=== PATIENT | male | born 1980 | race African-American/Black ===

== ENCOUNTER 2022-03-03 10:39 | Emergency (ER) | payer OTHER, SELFPAY ==
[2022-03-03] MEDS ORDERED: Ketorolac Tromethamine 30 MG/ML VIAL ONE (11:11)
[2022-03-03] MEDS ORDERED: Orphenadrine Citrate 60 MG/2 ML VIAL ONE (11:11)
== END 2022-03-03 11:42 | disposition home or self-care (01) ==
LOC: MADERS 10:39
DX: M54.50 Low back pain, unspecified (principal); J45.909 Unspecified asthma, uncomplicated; F17.210 Nicotine dependence, cigarettes, uncomplicated; X50.0XXA Overexertion from strenuous movement or load, initial encounter; Y92.69 Other specified industrial and construction area as the place of occurrence of the external cause; Z79.899 Other long term (current) drug therapy
CPT/HCPCS: 96372; 99283; J1885; J2360

== ENCOUNTER 2022-05-15 09:36 | Emergency (ER) | payer OTHER, SELFPAY ==
[2022-05-15 10:04] LABS: Bilirubin Negative (Negative); Blood, Urine Negative (Negative); Glucose, Urine (Dipstick) Negative (Negative); Ketone, Urine Negative (Negative); Leukocyte Negative (Negative); Nitrite Negative (Negative); Protein, Urine (Dipstick) Trace mg/dL (Neg-Trace); pH, Urine 5.5 (5.0-9.0)
[2022-05-15 10:13] LABS: Clarity Hazy (Clear); Specific Gravity, Urine 1.035 (1.002-1.036)
[2022-05-15] MEDS ORDERED: EPINEPHrine 1 MG/ML VIAL ONE ×2 (10:17→10:19)
[2022-05-15] MEDS ORDERED: EPINEPHrine 1 MG/10 ML Abboject SYRINGE ONE (10:17)
[2022-05-15 10:19] LABS: #Basophils 0.1 thou/uL (0.0-0.2); #Eosinphils 0.2 thou/uL (0.0-0.7); #Lymphocytes 1.1 thou/uL (1.20-3.40); #Monocytes 0.5 thou/uL (0.11-0.59); #Neutrophils 2.5 thou/uL (1.40-6.50); %Basophils 1.9 % (0.0-1.0); %Eosinophils 4.6 % (0.0-10.0); %Lymphocytes 24.7 % (21.0-51.0); %Monocytes 11.8 % (0.0-10.0); Hemoglobin 15.3 g/dL (14.0-18.0); Mean Corpuscular HGB CONC 32.3 g/dL (32.0-36.0); Mean Corpuscular Hemoglobin 32.3 pg (27.0-31.0); Mean Corpuscular Volume 99.8 fL (78.0-98.0); Mean Platelet Volume 10.1 fL (7.4-10.4); Platelet Count 236 thou/uL (130-400); RBC Distribution Width 12.3 % (11.5-14.5); Red Blood Cell (RBC) Count 4.75 mill/uL (4.70-6.10); White Blood Cell (WBC) Count 4.5 thou/uL (4.8-10.8)
[2022-05-15] MEDS ORDERED: Lidocaine 1% (PF) 30 ML VIAL ONE (10:24)
[2022-05-15 10:31] LABS: Anion Gap 13 mmol/L (10-20); BUN (Urea Nitrogen) 8 mg/dL (8.9-20.6); Calc. Creatinine Clearance 0 mL/min (70-130); Calcium 9.8 mg/dL (7.8-10.44); Carbon Dioxide 25 mmol/L (22-29); Chloride 105 mmol/L (98-107); Estimated GFR 74; Glucose 98 mg/dL (70-105); Potassium 4.7 mmol/L (3.5-5.1); Sodium 138 mmol/L (136-145)
== END 2022-05-15 10:39 | disposition home or self-care (01) ==
LOC: MADERS 09:36
DX: N48.30 Priapism, unspecified (principal); J45.909 Unspecified asthma, uncomplicated; F17.210 Nicotine dependence, cigarettes, uncomplicated; Z79.899 Other long term (current) drug therapy
CPT/HCPCS: 36415; 80048; 81003; 85025; 99284; J0171; J2001

== ENCOUNTER 2022-08-04 14:54 | Emergency (ER) | payer SELFPAY ==
[2022-08-04] MEDS ORDERED: Acetaminophen 500 MG TAB ONE (16:45)
[2022-08-04] MEDS ORDERED: Cyclobenzaprine 10 MG TAB ONE (16:45)
== END 2022-08-04 17:16 | disposition home or self-care (01) ==
LOC: MADERS 14:54
DX: S20.212A Contusion of left front wall of thorax, initial encounter (principal); J45.909 Unspecified asthma, uncomplicated; Z79.899 Other long term (current) drug therapy; F17.210 Nicotine dependence, cigarettes, uncomplicated; X58.XXXA Exposure to other specified factors, initial encounter

== ENCOUNTER 2022-09-11 13:45 | Emergency (ER) | payer SELFPAY | END 2022-09-11 14:38 | disposition home or self-care (01) | LOC: MADERS 13:45 | DX: J45.901 Unspecified asthma with (acute) exacerbation (principal); F17.210 Nicotine dependence, cigarettes, uncomplicated | CPT/HCPCS: 99284 ==

== ENCOUNTER → 2023-01-25 02:24 | Emergency (ER) | payer SELFPAY ==
[~2023-01-25 02:24] MED LIST: Albuterol 200 PUFF (6.7GM INHALER) ONE; Dexamethasone 4 MG TAB ONE; Ipratropium/Albuterol 3 ML NEB ONE
== END | disposition home or self-care (01) ==
LOC: MADERS 02:24
DX: Z53.21 Procedure and treatment not carried out due to patient leaving prior to being seen by health care provider (principal)
CPT/HCPCS: J7620; J8540

== ENCOUNTER 2023-02-09 15:56 | Emergency (ER) | payer SELFPAY ==
[2023-02-09] MEDS ORDERED: Ipratropium/Albuterol 3 ML NEB ONE (16:18)
[2023-02-09] MEDS ORDERED: Aspirin Chewable 81 MG TAB ONE (16:18)
[2023-02-09] MEDS ORDERED: predniSONE 20 MG TAB ONE (16:18)
[2023-02-09 16:52] LABS: #Basophils 0.1 thou/uL (0.0-0.2); #Eosinphils 0.1 thou/uL (0.0-0.7); #Lymphocytes 1.6 thou/uL (1.20-3.40); #Monocytes 0.3 thou/uL (0.11-0.59); #Neutrophils 1.9 thou/uL (1.40-6.50); %Basophils 2.9 % (0.0-1.0); %Eosinophils 2.5 % (0.0-10.0); %Lymphocytes 39.9 % (21.0-51.0); %Neutrophils 46.8 % (42.0-75.0); Mean Corpuscular Hemoglobin 33.1 pg (27.0-31.0); Mean Corpuscular Volume 97.5 fl (78.0-98.0); Mean Platelet Volume 8.7 fL (7.4-10.4); Platelet Count 218 10x3/uL (130-400); RBC Distribution Width 11.9 % (11.5-14.5); Red Blood Cell (RBC) Count 4.22 mill/uL (4.70-6.10)
[2023-02-09 16:58] LABS: ALT (SGPT) 18 U/L (8-55); AST (SGOT) 24 U/L (5-34); Albumin 4.3 g/dL (3.5-5.0); Alkaline Phosphatase 48 U/L (40-110); Anion Gap 13 mmol/L (10-20); BUN (Urea Nitrogen) 7 mg/dL (8.9-20.6); Bilirubin, Total 0.3 mg/dL (0.2-1.2); Calc. Creatinine Clearance 0 mL/min (70-130); Calcium 9.5 mg/dL (7.8-10.44); Carbon Dioxide 25 mmol/L (22-29); Chloride 106 mmol/L (98-107); Estimated GFR 98; Globulin 2.5 g/dL (2.4-3.5); Glucose 98 mg/dL (70-105); Potassium 4.4 mmol/L (3.5-5.1); Protein, Total 6.8 g/dL (6.0-8.3); Sodium 140 mmol/L (136-145)
== END 2023-02-09 18:01 | disposition home or self-care (01) ==
LOC: MADERS 15:56
DX: J45.901 Unspecified asthma with (acute) exacerbation (principal); Z79.899 Other long term (current) drug therapy; F17.210 Nicotine dependence, cigarettes, uncomplicated
CPT/HCPCS: 36415; 71045; 80053; 84484; 85025; 93005; J7512; J7620